=== PATIENT | female | born 1980 | race Hispanic/Latino ===

== ENCOUNTER 2016-09-09 17:06 | Emergency (ER) | payer OTHER ==
[~2016-09-09] VITALS: Ht 154.9 cm; Wt 79.5 kg
[2016-09-09 17:19] VITALS: BP 129/80; PULSE 108; RESP 12; O2SAT 95
--- NOTE | 2016-09-09 18:29 | ED.REPORT ---
HPI-URI / Cough / Cold Date of Service Sep 09, 2016 ED Provider: Doc,Ed MD History of Present Illness: cough was showing some improvement. rattling in chest. has asthma. using albuterol inhaler no help, almost out. primary care is no one. Nursing Notes Stated Complaint: COUGHING AND TROUBLE BREATHING FOR 2 WEEKS Chief Complaint: FLU/Cold Symptoms Nursing Notes Reviewed: Yes Allergies: Coded Allergies: No Known Allergies (Verified Allergy, Severe, 09/15/05) General Time Seen by MD: 18:29 Chief Complaint Cough, productive... 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 Alcohol Use: Denies alcohol use Occupation lives with partner no work or school 09/09/2016 Ambulatory Status Independent Review of Systems Basic Review of Systems Cardiovascular: No chest pain, No dyspnea on exertion, No orthopnea, No parox noct dyspnea, No palpitations Endocrine: No cold intolerance, No heat intolerance, No weight gain, No weight loss Psychiatric: Normal thought content Physical Exam Initial Vital Signs Vital Signs (First) Date Time Temp Pulse Resp B/P Pulse Ox O2 Delivery O2 Flow Rate FiO2 09/09/16 17:19 36.6 108 12 129/80 95 Room Air Initial VS: Reviewed, Vital signs normal Head / Eyes: Atraumatic, Normocephalic, PERRL Neck: Supple, Non-tender, Full range of motion Cardiovascular: Regular rate & rhythm, Heart sounds normal, Intact distal pulses Abdomen / GI: Soft, Non-tender, No guarding, No rebound, No distention Back: No CVA tenderness Lymphatic: No lymphadenopathy Extremities: Vascular intact, Neuro intact, No swelling, No tenderness Skin: Warm, Dry, No cyanosis Neurologic: Alert, Oriented, Nonfocal Psychiatric: Mood/affect normal, Behavior normal, Normal thought content General/Constitutional: Awake, Alert, No acute distress, Well appearing, Well developed, Well hydrated, Well nourished, Cooperative, Not toxic appearing ENT: Atraumatic, Airway patent, Mucous membranes moist, Pharynx NL Respiratory / Chest: Atraumatic Diminished Breath Sounds: Positive: Decreased L, Decreased R Wheezing / Retractions: Positive: Wheezing inspiratory Neck: Atraumatic, Supple, No meningismus Cardiovascular: Heart rate NL, Regular rhythm, Heart sounds NL Interpretation & Diagnostics X-Ray Chest Interpretation Chest Xray Interpretation: PROCEDURE: X-RAY CHEST, TWO VIEWS ([id number]) INDICATIONS: coughing TECHNIQUE: 2 views of the chest were acquired. COMPARISON: None. FINDINGS: Surgical changes and devices: None. Lungs and pleura: No pleural effusions or pneumothorax. Lungs are clear. Mediastinum: Mediastinal contours are normal. Heart size is normal. Bones and chest wall: No suspicious bony abnormalities. Soft tissues appear unremarkable. IMPRESSION: No acute cardiopulmonary findings. Dictated by: Donna Santiago M.D. on 09/09/2016 at 19:11 Approved by: Donna Santiago M.D. on 09/09/2016 at 19:11 Re-Eval/Medical Decision Med Decision/Clinical Course Med Decision/Clinical Course: 36 year old female presents for evualation of cough of 5 days duration. Patient with hx of asthma. Denies fever. Chest x-ray is negative for any infection. Exam indicates decreased breath sounds with wheezing. Greatly improved after nebulizer with duoneb. No sign of influenza or pneumonia. Discharge & Departure Impression: Primary Impression: Asthma exacerbation Disposition: Home Patient Instructions: Moderate and Severe Persistent Asthma (ED) Additional Instructions: The chest x-ray does not show any sign of infection. You have had a great improvement in your air movement after the nebulizer treatment. You are being started on a prednisone taper. Use prednisone 40 mg for 3 days, the 30 mg for 3 days then 20 mg for 3 days then 10 mg for 3 days. Also start on azithromycin daily for 5 days. Being on steroids can increase your risk of infection. Use the nebulizer machine every 4 hours as needed. This can be filled at [facility]. Please establish in primary care. Stop smoking! I care about you! Referrals: Stacy Rodriguez MD (Family) EDSupervising Provider for APC: Lan Ryan DO copies to: Stacy Rodriguez MD, Sue ARNP Sep 09, 2016 18:29
[2016-09-09] MEDS ORDERED: Albuterol-Ipratropium 3 mL Inhalation Solution NEB ONE (18:40)
[2016-09-09 18:53] VITALS: PULSE 110; RESP 18; O2SAT 97
--- NOTE | 2016-09-09 19:12 | DRSVH ---
PROCEDURE: X-RAY CHEST, TWO VIEWS ([id number]) INDICATIONS: coughing TECHNIQUE: 2 views of the chest were acquired. COMPARISON: None. FINDINGS: Surgical changes and devices: None. Lungs and pleura: No pleural effusions or pneumothorax. Lungs are clear. Mediastinum: Mediastinal contours are normal. Heart size is normal. Bones and chest wall: No suspicious bony abnormalities. Soft tissues appear unremarkable. IMPRESSION: No acute cardiopulmonary findings. Dictated by: Donna Santiago M.D. on 09/09/2016 at 19:11 Approved by: Donna Santiago M.D. on 09/09/2016 at 19:11
[2016-09-09] MEDS ORDERED: predniSONE 20 mg Tablet PO ONE (19:25)
== END 2016-09-09 19:55 | disposition home or self-care (01) ==
LOC: SED 17:06
DX: J45.901 Unspecified asthma with (acute) exacerbation (principal); F17.200 Nicotine dependence, unspecified, uncomplicated
CPT/HCPCS: 71020; 94664; 99283; J7620